=== PATIENT | male | born 1975 | race Caucasian/White ===

== ENCOUNTER 2020-05-21 19:20 | Emergency (ER) | payer BC, OTHER ==
--- NOTE | 2020-05-21 19:52 | EDM.PDOC ---
ED HPI GENERAL MEDICAL PROBLEM - General Chief Complaint: Upper Extremity Injury/Pain Stated Complaint: left wrist Time Seen by Provider: 05/21/20 19:30 Source of Information: Reports: Patient History Limitations: Reports: No Limitations - History of Present Illness INITIAL COMMENTS - FREE TEXT/NARRATIVE: Pt fell this Am on outstretched arm Now with pain in left wrist Mild swelling Increased pain with movement Onset: Today, Sudden Location: Reports: Upper Extremity, Left Context: Reports: Trauma Left Wrist Pain Score (Numeric/FACES): 8 - Related Data Allergies Allergy/AdvReac Type Severity Reaction Status Date / Time No Known Drug Allergies Allergy Other Verified 05/21/20 19:22 Home Meds: Home Meds buPROPion HCL [Wellbutrin Xl] 300 mg PO BID 05/21/20 [History] Past Medical History Musculoskeletal History: Reports: Arthritis, Back Pain, Chronic, Fracture Psychiatric History: Reports: Addiction, Depression - Infectious Disease History Infectious Disease History: Reports: Chicken Pox - Past Surgical History Musculoskeletal Surgical History: Reports: Other (See Below) Other Musculoskeletal Surgeries/Procedures:: right ankle reconstruction 1996 Social & Family History - Tobacco Use Tobacco Use Status *Q: Former Tobacco User Used Tobacco, but Quit: Yes Month/Year Tobacco Last Used: 2008 - Caffeine Use Caffeine Use: Reports: Coffee, Energy Drinks, Soda - Recreational Drug Use Recreational Drug Use: No Review of Systems - Review of Systems Review Of Systems: See Below Musculoskeletal: Reports: Joint Pain, Joint Swelling, Other (Left wrist) ED EXAM, GENERAL - Physical Exam Exam: See Below Exam Limited By: No Limitations Extremities: Joint Swelling, Arm Pain, Limited Range of Motion, Other (Left wrist tender with pain on palpation and movement Neurovascular intact) Course - Vital Signs Last Recorded V/S: Last Vital Signs Temp 97.2 F 05/21/20 19:26 Pulse 70 05/21/20 19:26 Resp 12 05/21/20 19:26 BP 162/97 H 05/21/20 19:26 Pulse Ox 100 05/21/20 19:26 - Orders/Labs/Meds Orders: Active Orders 24 hr Category Date Time Status Wrist Comp Min 3V Lt [CR] Stat Exams 05/21/20 19:24 Taken - Re-Assessments/Exams Free Text/Narrative Re-Assessment/Exam: 05/21/20 19:50 Wrist splint placed per nurse Xray: non-displaced distal radius fracture Departure - Departure Time of Disposition: 19:50 Disposition: Home, Self-Care 01 Clinical Impression: Closed fracture of radius Qualifiers: Encounter type: initial encounter Radius location: distal Fracture morphology: unspecified fracture morphology Laterality: left Qualified Code(s): S52.502A - Unspecified fracture of the lower end of left radius, initial encounter for closed fracture - Discharge Information *PRESCRIPTION DRUG MONITORING PROGRAM REVIEWED*: Not Applicable *COPY OF PRESCRIPTION DRUG MONITORING REPORT IN PATIENT YOAN: Not Applicable Instructions: Wrist Fracture Treated With Immobilization, [id number] Additional Instructions: Ice as needed Follow up in clinic Wear splint Rx Naprosyn 500 mg BID for pain Sepsis Event Note (ED) - Evaluation Sepsis Screening Result: No Definite Risk - Focused Exam Vital Signs: Vital Signs Temp Pulse Resp BP Pulse Ox 05/21/20 19:26 97.2 F 70 12 162/97 H 100 - My Orders Last 24 Hours: My Active Orders 05/21/20 19:24 Wrist Comp Min 3V Lt [CR] Stat - Assessment/Plan Last 24 Hours: My Active Orders 05/21/20 19:24 Wrist Comp Min 3V Lt [CR] Stat
== END 2020-05-21 20:00 | disposition home or self-care (01) ==
LOC: LL.ED 19:20
DX: S52.572A Other intraarticular fracture of lower end of left radius, initial encounter for closed fracture (principal); F32.9 Major depressive disorder, single episode, unspecified; Z79.899 Other long term (current) drug therapy; Z87.891 Personal history of nicotine dependence; W18.30XA Fall on same level, unspecified, initial encounter
CPT/HCPCS: 29125; 73110-LT; 99282; 99283-25